=== PATIENT | female | born 1990 | race Caucasian/White ===

== ENCOUNTER 2020-02-14 07:07 | Inpatient (IN) | payer BC ==
[2020-02-14] MEDS ORDERED: Lactated Ringers 1,000 ML ONE (07:40)
[2020-02-14] MEDS ORDERED: Ondansetron 4 MG/2 ML SDV IVPUSH PRN (07:59)
[2020-02-14] MEDS ORDERED: Nalbuphine 10 MG/ML Syringe IVPUSH PRN (07:59)
[2020-02-14] MEDS ORDERED: Sodium Chloride 0.9% 10 ML Syringe FLUSH PRN (07:59)
[2020-02-14] MEDS ORDERED: Lactated Ringers 1,000 ML IV SCH (08:00)
[2020-02-14] MEDS ORDERED: Oxytocin/Lactated Ringers 10 UNIT/1,000 ML BAG IV SCH ×2 (08:00)
[2020-02-14] MEDS ORDERED: Oxytocin/Lactated Ringers 20 UNIT/1,000 ML BAG ONE (08:05)
[2020-02-14] MEDS ORDERED: Lidocaine 1.5% with EPINEPHrine 1:200,000 5 ML Amp ONE (10:00)
--- NOTE | 2020-02-14 10:25 | PCM.LDHP ---
L&D History of Present Illness - General Date of Service: 02/14/20 Admit Problem/Dx: Admission Diagnosis/Problem Admission Diagnosis/Problem 02/14/20 10:14 Lucy 29-year-old 3 para 2001 white female admitted on 02/14/2020 at 39- 6/7 weeks gestational age with an MAYUR of 02/15/2020 for induction of labor. Source of Information: Patient History Limitations: Reports: No Limitations - History of Present Illness Introduction:: Lucy 29-year-old 3 para 2001 white female admitted on 02/14/2020 at 39- 6/7 weeks gestational age with an MAYUR of 02/15/2020 for induction of labor.Last evaluation in clinic on 01/31/2020 her cervix was 3 cm dilated, 80% effaced, very soft, mid position at a -3 station. Plan was to assess the station of the presenting part and proceed with artificial rupture membranes induction Pitocin augmentation. If the head had not descended well against cervix would start with Pitocin and follow with AROM augmentation. Patient is understanding of the process and wishes to proceed. NREMT history: Radha is a 3 para 2001. MAYRU of 02/15/2020 was determined by an early ultrasound done at 7-1/7 weeks gestational age and supported by other ultrasounds during the . She had menarche at age 13. Cycles every 30 days. Not using any control at the time of conception. Somewhat uncertain about LMP. Her past obstetric history includes the followin. Male born 2011 at 41 weeks gestational age after 42 hours of labor. 7 lbs. 3 oz. Spinal for delivery. Child's name is Ross. 2. Female infant born 08/19/2014 at 40-5/7 weeks gestational age after 3 hours and 3 minutes of labor. 6 lbs. 3 oz. Had an epidural during this labor. Child's name is Nara. course: Patient was seen early in the course at 7-1/7 weeks gestational age. She had ultrasound that time by which the was dated. She was seen on a very regular basis throughout the course of . Fundal height growth was appropriate. Weight gain was from 123.2 pounds to 161 pounds for a 36.8 pound increase. It is been active. Vital signs of been stable. She had her flu shot on 07/22/2019 and her T dap immunization on 12/15/2019. Patient has positive group B strep. She is allergic to penicillin and the group B strep is resistant to clindamycin. Therefore she is a vancomycin candidate while in labor for prophylaxis. She has history of anxiety and depression. She has a history of MRSA infection but this was found to be clear on evaluation prenatally. Prequel noninvasive testing was completed and was negative for trisomy 18, 13 and 21. She is Rh- and did receive RhoGAM during the course of her on 11/19/2019. She is also had some mild thrombocytopenia. Last platelet count was acceptable. She is rubella equivocal and patient is candidate for an MMR prior to discharge from hospital. Allergies: 1. Penicillin which causes a rash 2. Animal dander-cats and Dogs. 3. Seasonal Allergies. Medications: 1. vitamins 1 by mouth daily 2. Ferrous sulfate 324 mg by mouth daily 3. Probiotic oral tablet delayed release 1 daily 4. Sertraline 50 mg by mouth daily for anxiety/depression 5. Prevacid by mouth daily when necessary for dyspepsia. Past medical history: 2 as above. 2. Anxiety/depressant-on sertraline 3. Abnormal Pap smear 2016 mild no follow-up indicated Past surgical history: 1. Tonsillectomy in 1994 2. Violet teeth extraction Family history: Mother of the baby's nephew had hydrocephalus. Patient brother with heart defect past with 2 months old. Patient's mother with recurrent losses. Mother however is alive and well otherwise with the exception of high blood pressure and miscarriages 2. Father is alive and well with high blood pressure and high cholesterol. 2 brothers 1 2 months due to heart condition, the other is okay. 2 sisters with both alive and well. Maternal grandmother is secondary blood vessel disease, stroke was a smoker. Maternal grandfather at age 99. Paternal grandmother alive at age 91. Paternal grandfather is seizures age 40-50. No known family history of cancer, bleeding or blood clotting disorders, anesthesia related issues or related concerns. Social history: Patient is . She is a teacher. She is a college graduate. She had her and family live in [place], [place]. is Tre. She does not use any significant most alcohol, drugs or tobacco. Review of systems: In general patient has no complaints. The baby has been active. Skin: Negative Lungs: No infectious symptoms or shortness of breath Cardiovascular: No chest pain or exercise intolerance Breasts: No lumps, changes in size, pain, dimpling, discharge or axillary or supraclavicular concerns. GI: Negative : changes. Musculoskeletal: Negative Neurological: Negative In general the patient is well-developed, well-nourished, pleasant female of stated age in no acute distress. On last evaluation in clinic in 01/31/2020 blood pressures 110/60, weight was 161 with a pregravid weight of 123.2. Height is 5 feet 4. Prepregnancy BMI was 20.3. heart rate then was 128 BPM. Skin is warm dry without lesions. HEENT, neck and back within normal limits. Lungs are clear with good breath sounds in all lung ocampo. Cardiovascular exam shows regular and rhythm without murmurs. Abdomen is gravid with last fundal height at 37 cm.. Genital per digital exam is as above.. Extremities and neurological exam are grossly within normal limits. - Related Data Allergies/Adverse Reactions: Allergies Allergy/AdvReac Type Severity Reaction Status Date / Time amoxicillin [Amoxicillin] Allergy Unknown Hives Verified 02/04/20 10:35 penicillin G Allergy Unknown Rash Verified 02/04/20 10:35 Home Medications: Home Meds Ferrous Sulfate 324 mg PO ASDIRECTED 02/04/20 [History] Lansoprazole [Prevacid] 15 mg PO ASDIRECTED 02/04/20 [History] Prenat 115/Iron Fum/Folic/Dss [ 19 Tablet] 1 each PO DAILY 02/04/20 [ History] Sertraline HCl [Zoloft] 50 mg PO DAILY 02/04/20 [History] Past Medical History - Past Health History Medical/Surgical History: Denies Medical/Surgical History NREMT History: Reports: Neurological History: Reports: Headaches, Chronic Psychiatric History: Reports: Anxiety, Depression - Past Surgical History HEENT Surgical History: Reports: Tonsillectomy Other HEENT Surgeries/Procedures: Violet teeth removed Social & Family History - Tobacco Use Smoking Status *Q: Never Smoker Second Hand Smoke Exposure: No - Caffeine Use Caffeine Use: Reports: None - Recreational Drug Use Recreational Drug Use: No H&P Review of Systems - Review of Systems: Review Of Systems: See Below L&D Exam - Exam Exam: See Below - Vital Signs Vital Signs: Last Vital Signs Temp 36.8 C 02/14/20 07:59 Pulse 83 02/14/20 07:59 Resp 18 02/14/20 07:59 BP 117/78 02/14/20 07:59 Pulse Ox 99 02/14/20 07:59 Weight: 73.482 kg - Patient Data Lab Results Last 24 hrs: Laboratory Results - last 24 hr 02/14/20 Range/Units 08:11 WBC 8.06 (3.98-10.04) K/mm3 RBC 3.76 L (3.98-5.22) M/mm3 Hgb 11.9 (11.2-15.7) gm/dl Hct 36.7 (34.1-44.9) % MCV 97.6 H (79.4-94.8) fl MCH 31.6 (25.6-32.2) pg MCHC 32.4 (32.2-35.5) g/dl RDW Std Deviation 48.8 H (36.4-46.3) fL Plt Count 110 L (182-369) K/mm3 MPV 11.5 (9.4-12.3) fl Neut % (Auto) 75.9 H (34.0-71.1) % Lymph % (Auto) 14.6 L (19.3-51.7) % Parmer % (Auto) 7.4 (4.7-12.5) % Eos % (Auto) 0.5 L (0.7-5.8) Baso % (Auto) 0.1 (0.1-1.2) % Neut # (Auto) 6.11 (1.56-6.13) K/mm3 Lymph # (Auto) 1.18 (1.18-3.74) K/mm3 Parmer # (Auto) 0.60 H (0.24-0.36) K/mm3 Eos # (Auto) 0.04 (0.04-0.36) K/mm3 Baso # (Auto) 0.01 (0.01-0.08) K/mm3 Manual Slide Review Abnormal smear Result Diagrams: 02/14/20 08:11 Problem List Initiated/Reviewed/Updated: Yes Orders Last 24hrs: Active Orders 24 hr Category Date Time Status Activity as Tolerated [RC] PFP Care 02/14/20 07:59 Active Communication Order [RC] ASDIRECTED Care 02/14/20 07:59 Active Heart Tones [RC] ASDIRECTED Care 02/14/20 07:59 Active Notify Provider [RC] PFP Care 02/14/20 07:59 Active Notify Provider [RC] PRN Care 02/14/20 07:59 Active Peripheral IV Care [RC] . DIRECTED Care 02/14/20 07:59 Active Vital Signs [RC] PER UNIT ROUTINE Care 02/14/20 07:59 Active Regular Diet [DIET] Diet 02/14/20 Breakfast Active RAPID PLASMA REAGIN,RPR [CHEM] Routine Lab 02/14/20 08:11 Received Lactated Ringers [Ringers, Lactated] 1,000 ml Med 02/14/20 08:00 Active IV ASDIRECTED Nalbuphine [Nubain] Med 02/14/20 07:59 Active 10 mg IVPUSH Q2H PRN Ondansetron [Zofran] Med 02/14/20 07:59 Active 4 mg IVPUSH Q4H PRN Oxytocin/Lactated Ringers [Pitocin in LR 10 Units/1,000 Med 02/14/20 08:00 Active ML] 10 unit in 1,000 ml IV .CONTINUOUS Oxytocin/Lactated Ringers [Pitocin in LR 10 Units/1,000 Med 02/14/20 08:00 Active ML] 10 unit in 1,000 ml IV TITRATE Sodium Chloride 0.9% [Saline Flush] Med 02/14/20 07:59 Active 10 ml FLUSH ASDIRECTED PRN Vancomycin [Vancocin] 1 gm Med 02/14/20 08:00 Active Sodium Chloride 0.9% [Normal Saline (AdvBag)] 250 ml IV Q12H Electronic Heart Tones Ext w TOCO [WOMSER] Oth 02/14/20 07:59 Ordered Routine Electronic Heart Tones Internal [WOMSER] Per Unit Oth 02/14/20 07:59 Ordered Routine Peripheral IV Insertion Adult [OM.PC] Routine Oth 02/14/20 07:59 Ordered Resuscitation Status Routine Resus Stat 02/14/20 07:59 Ordered Medication Orders Lactated Ringer's (Ringers, Lactated) 1,000 mls @ 100 mls/hr IV ASDIRECTED SOBEIDA Last Admin: 02/14/20 08:11 Dose: 100 mls/hr Oxytocin/Lactated Ringer's (Pitocin In Lr 10 Units/1,000 Ml) 10 unit in 1,000 mls @ 12 mls/hr IV TITRATE SOBEIDA; Protocol Last Titration: 02/14/20 10:10 Dose: 6 munits/min, 36 mls/hr Titration: 02/14/20 09:15 Dose: 4 munits/min, 24 mls/hr Admin: 02/14/20 08:13 Dose: 2 munits/min, 12 mls/hr Oxytocin/Lactated Ringer's (Pitocin In Lr 10 Units/1,000 Ml) 10 unit in 1,000 mls @ 500 mls/hr IV .CONTINUOUS SOBEIDA Vancomycin HCl 1 gm/ Sodium (Chloride) 250 mls @ 167 mls/hr IV Q12H [facility] Last Admin: 02/14/20 08:25 Dose: 167 mls/hr Nalbuphine HCl (Nubain) 10 mg IVPUSH Q2H PRN PRN Reason: Pain Ondansetron HCl (Zofran) 4 mg IVPUSH Q4H PRN PRN Reason: Nausea/Vomiting Sodium Chloride (Saline Flush) 10 ml FLUSH ASDIRECTED PRN PRN Reason: Keep Vein Open Assessment/Plan Comment:: 1. 39-6/7 week intrauterine admitted for induction of labor 2. Group B strep positive with penicillin allergy and group B strep which is resistant to clindamycin. Patient is candidate for vancomycin prophylaxis per protocol. 3. Desires epidural in labor 4. Plans to breast-feed 5. Has received her flu immunization and her T dap. 6. Patient is rubella equivocal. She is candidate for MMR prior to discharge from hospital. Plan: 1. Induction of labor as above. 2. Epidural when necessary 3. Vancomycin per protocol for group B strep prophylaxis 4. Anticipate normal spontaneous vaginal delivery 5. Recommend MMR prior to discharge from hospital.
[2020-02-14] MEDS ORDERED: ePHEDrine 50 MG/ML SDV IVPUSH PRN (12:55)
[2020-02-14] MEDS ORDERED: Bupivacaine/fentaNYL/NS 100 ML Bag EPIDUR PRN (12:55)
[2020-02-14] MEDS ORDERED: diphenhydrAMINE 50 MG/ML SDV IVPUSH PRN (12:55)
[2020-02-14] MEDS ORDERED: fentaNYL 100 MCG/2 ML SDV EPIDUR PRN (12:55)
[2020-02-14] MEDS ORDERED: fentaNYL 100 MCG/2 ML SDV ONE (12:59)
--- NOTE | 2020-02-14 13:03 | PCM.PREANE ---
Preanesthetic Assessment - Anesthesia/Transfusion/Family Hx Anesthesia History: Prior Anesthesia Without Reaction Transfusion History: No Prior Transfusion(s) - Review of Systems General: No Symptoms Pulmonary: No Symptoms Cardiovascular: No Symptoms Gastrointestinal: No Symptoms Neurological: Headache (baseline migraine/ chronic) Other: Reports: None - Physical Assessment Vital Signs: Last Vital Signs Temp 98.3 F 02/14/20 07:59 Pulse 83 02/14/20 07:59 Resp 18 02/14/20 07:59 BP 117/78 02/14/20 07:59 Pulse Ox 99 02/14/20 07:59 Height: 1.63 m Weight: 73.482 kg ASA Class: 2 Mental Status: Alert & Oriented x3 Airway Class: Mallampati = 2 Dentition: Reports: Normal Dentition Thyro-Mental Finger Breadths: 3 Mouth Opening Finger Breadths: 3 ROM/Head Extension: Full Lungs: Clear to Auscultation, Normal Respiratory Effort Cardiovascular: Regular Rate, Regular Rhythm - Lab Values: Laboratory Last Values WBC 8.06 K/mm3 (3.98-10.04) 02/14/20 08:11 RBC 3.76 M/mm3 (3.98-5.22) L 02/14/20 08:11 Hgb 11.9 gm/dl (11.2-15.7) 02/14/20 08:11 Hct 36.7 % (34.1-44.9) 02/14/20 08:11 MCV 97.6 fl (79.4-94.8) H 02/14/20 08:11 MCH 31.6 pg (25.6-32.2) 02/14/20 08:11 MCHC 32.4 g/dl (32.2-35.5) 02/14/20 08:11 RDW Std Deviation 48.8 fL (36.4-46.3) H 02/14/20 08:11 Plt Count 110 K/mm3 (182-369) L 02/14/20 08:11 MPV 11.5 fl (9.4-12.3) 02/14/20 08:11 Neut % (Auto) 75.9 % (34.0-71.1) H 02/14/20 08:11 Lymph % (Auto) 14.6 % (19.3-51.7) L 02/14/20 08:11 Loving % (Auto) 7.4 % (4.7-12.5) 02/14/20 08:11 Eos % (Auto) 0.5 (0.7-5.8) L 02/14/20 08:11 Baso % (Auto) 0.1 % (0.1-1.2) 02/14/20 08:11 Neut # (Auto) 6.11 K/mm3 (1.56-6.13) 02/14/20 08:11 Lymph # (Auto) 1.18 K/mm3 (1.18-3.74) 02/14/20 08:11 Loving # (Auto) 0.60 K/mm3 (0.24-0.36) H 02/14/20 08:11 Eos # (Auto) 0.04 K/mm3 (0.04-0.36) 02/14/20 08:11 Baso # (Auto) 0.01 K/mm3 (0.01-0.08) 02/14/20 08:11 Manual Slide Review Abnormal smear 02/14/20 08:11 - Allergies Allergies/Adverse Reactions: Allergies Allergy/AdvReac Type Severity Reaction Status Date / Time amoxicillin [Amoxicillin] Allergy Unknown Hives Verified 02/04/20 10:35 penicillin G Allergy Unknown Rash Verified 02/04/20 10:35 - Acknowledgements Anesthesia Type Planned: Epidural Pt an Appropriate Candidate for the Planned Anesthesia: Yes Alternatives and Risks of Anesthesia Discussed w Pt/Guardian: Yes Pt/Guardian Understands and Agrees with Anesthesia Plan: Yes PreAnesthesia Questionnaire - Past Health History Medical/Surgical History: Denies Medical/Surgical History [employer] History: Reports: Neurological History: Reports: Headaches, Chronic Psychiatric History: Reports: Anxiety, Depression - Past Surgical History HEENT Surgical History: Reports: Tonsillectomy Other HEENT Surgeries/Procedures: [place] teeth removed - SUBSTANCE USE Smoking Status *Q: Never Smoker Tobacco Use Within Last Twelve Months: No Second Hand Smoke Exposure: No Recreational Drug Use History: No - HOME MEDS Home Medications: Home Meds Ferrous Sulfate 324 mg PO ASDIRECTED 02/04/20 [History] Lansoprazole [Prevacid] 15 mg PO ASDIRECTED 02/04/20 [History] Prenat 115/Iron Fum/Folic/Dss [ 19 Tablet] 1 each PO DAILY 02/04/20 [ History] Sertraline HCl [Zoloft] 50 mg PO DAILY 02/04/20 [History] - CURRENT (IN HOUSE) MEDS Current Meds: Current Medications Diphenhydramine HCl (Benadryl) 25 mg IVPUSH Q6H PRN PRN Reason: pruritis Ephedrine Sulfate (Ephedrine Sulfate) 5 mg IVPUSH ASDIRECTED PRN PRN Reason: Hypotension Fentanyl (Sublimaze) 100 mcg EPIDUR Q3H PRN PRN Reason: Pain Fentanyl/Bupivacaine HCl (Fentanyl/Bupivacaine/Ns 2 Mcg-0.125% 100 Ml) 100 ml EPIDUR ASDIRECTED PRN PRN Reason: Pain Lactated Ringer's (Ringers, Lactated) 1,000 mls @ 100 mls/hr IV ASDIRECTED SOBEIDA Last Admin: 02/14/20 08:11 Dose: 100 mls/hr Oxytocin/Lactated Ringer's (Pitocin In Lr 10 Units/1,000 Ml) 10 unit in 1,000 mls @ 12 mls/hr IV TITRATE SOBEIDA; Protocol Last Titration: 02/14/20 11:46 Dose: 10 munits/min, 60 mls/hr Oxytocin/Lactated Ringer's (Pitocin In Lr 10 Units/1,000 Ml) 10 unit in 1,000 mls @ 500 mls/hr IV .CONTINUOUS SOBEIDA Vancomycin HCl 1 gm/ Sodium (Chloride) 250 mls @ 167 mls/hr IV Q12H SOBEIDA Last Admin: 02/14/20 08:25 Dose: 167 mls/hr Nalbuphine HCl (Nubain) 10 mg IVPUSH Q2H PRN PRN Reason: Pain Ondansetron HCl (Zofran) 4 mg IVPUSH Q4H PRN PRN Reason: Nausea/Vomiting Sodium Chloride (Saline Flush) 10 ml FLUSH ASDIRECTED PRN PRN Reason: Keep Vein Open Discontinued Medications Lactated Ringer's (Ringers, Lactated) Confirm Administered Dose 1,000 mls @ as directed .ROUTE .STK-MED ONE Stop: 02/14/20 07:41 Last Admin: 02/14/20 10:43 Dose: Not Given Oxytocin/Lactated Ringer's (Pitocin In Lr 20 Units/1,000 Ml) Confirm Administered Dose 20 unit in 1,000 mls @ as directed .ROUTE .STK-MED ONE Stop: 02/14/20 08:06
[2020-02-14] MEDS ORDERED: Acetaminophen 325 MG Tab PO PRN (17:41)
[2020-02-14] MEDS ORDERED: Docusate Sodium 100 MG Cap PO PRN (17:41)
--- NOTE | 2020-02-14 17:55 | PCM.SN.2 ---
- Free Text/Narrative Note: Lucy 29-year-old 3 para 2002 white female admitted on 02/14/2020 at 39- 6/7 weeks gestational age with an MAYUR of 02/15/2020 for induction of labor. Upon initial evaluation in labor and delivery the baby's head was found to be at a - 3 station and was not well engaged with cervix. She was initially given Pitocin per IV to initiate contractions. After 2-3 hours of Pitocin the baby's head was found to well against cervix and artificial rupture membranes with resultant clear amniotic fluid was then undertaken. The labor intensity increased significantly. Radha had an epidural for labor analgesia. She progressed rapidly and at 1436 hrs. on 02/14/2020 Radha delivered a viable, araujo, female infant named Diamond Ortega in a direct occiput anterior position. The baby weighed 6 pounds 12.3 ounces (3070 g), had Apgars of 8 and 9 and the length of 19.0 inches. Baby was placed on mom's abdomen. Nose and mouth were bulb suctioned. Pitocin was increased to 500 mL an hour in order to facilitate an increase in uterine tone and decreased likelihood of bleeding. The umbilical cord was long pulsate for 2-3 minutes and then was clamped 2 and cut by the baby's father Tre. Blood was obtained. The placenta then delivered in a De presentation, appeared intact and complete and was discarded per patient desire. She had a first-degree laceration which was repaired with a single figure-of- eight suture of 3-0 Monocryl using labor epidural analgesia as perineal anesthesia. Patient tolerated this well. Estimated blood loss was 200 mL. Patient plans to breast-feed. Condition: Good.
[2020-02-14] MEDS: Benzocaine/Menthol 20%-0.5% Spray 56 GM Canister TOP PRN (20:20)
[2020-02-14] MEDS: Witch Hazel Medicated Pads 40/Jar TOP PRN (20:20)
[2020-02-14] MEDS: Ibuprofen 600 MG Tab PO PRN (20:28)
--- NOTE | 2020-02-15 08:59 | PCM48HPAN ---
Post Anesthesia Note - EVALUATION WITHIN 48HRS OF ANESTHETIC Vital Signs in Normal Range: Yes Patient Participated in Evaluation: Yes Respiratory Function Stable: Yes Airway Patent: Yes Cardiovascular Function Stable: Yes Hydration Status Stable: Yes Pain Control Satisfactory: Yes Nausea and Vomiting Control Satisfactory: Yes Mental Status Recovered: Yes Vital Signs: Last Vital Signs Temp 36.7 C 02/15/20 03:03 Pulse 66 02/15/20 03:03 Resp 14 02/15/20 03:03 BP 119/97 H 02/15/20 03:03 Pulse Ox 97 02/15/20 03:03
[2020-02-15] MEDS ORDERED: Sertraline 50 MG Tab PO SCH (09:00)
[2020-02-15] MEDS ORDERED: Prenatal Multivitamin with Calcium/Folic Acid/Iron Tab PO SCH (09:00)
[2020-02-15] MEDS: Ibuprofen 600 MG Tab PO PRN (10:17)
--- NOTE | 2020-02-15 10:36 | PCM.DCSUM1 ---
Discharge Summary - Hospital Course Free Text/Narrative:: Lucy 29-year-old 3 para 2002 white female admitted on 02/14/2020 at 39- 6/7 weeks gestational age with an MAYUR of 02/15/2020 for induction of labor. Upon initial evaluation in labor and delivery the baby's head was found to be at a - 3 station and was not well engaged with cervix. She was initially given Pitocin per IV to initiate contractions. After 2-3 hours of Pitocin the baby's head was found to well against cervix and artificial rupture membranes with resultant clear amniotic fluid was then undertaken. The labor intensity increased significantly. Radha had an epidural for labor analgesia. She progressed rapidly and at 1436 hrs. on 02/14/2020 Radha delivered a viable, araujo, female infant named Diamond Ortega in a direct occiput anterior position. The baby weighed 6 pounds 12.3 ounces (3070 g), had Apgars of 8 and 9 and the length of 19.0 inches. Baby was placed on mom's abdomen. Nose and mouth were bulb suctioned. Pitocin was increased to 500 mL an hour in order to facilitate an increase in uterine tone and decreased likelihood of bleeding. The umbilical cord was long pulsate for 2-3 minutes and then was clamped 2 and cut by the baby's father Tre. Blood was obtained. The placenta then delivered in a De presentation, appeared intact and complete and was discarded per patient desire. She had a first-degree laceration which was repaired with a single figure-of- eight suture of 3-0 Monocryl using labor epidural analgesia as perineal anesthesia. Patient tolerated this well. Estimated blood loss was 200 mL. Patient plans to breast-feed. patient is done well. She is ambulatory and well, nursing without problems, voiding without concerns and has minimal lochia. She is desiring discharge home. Condition: Good. - Discharge Data Discharge Date: 02/15/20 Discharge Disposition: Home, Self-Care 01 Condition: Good - Referral to Home Health Primary Care Physician: Otoniel Boyd MD - Patient Instructions Diet: Regular Diet as Tolerated (Nursing diet with increase calories and calcium is recommended) Activity: As Tolerated (No intercourse or tampons until bleeding resolves) Driving: May Drive Today Showering/Bathing: May Shower (May take a bath) Notify Provider of: Fever, Increased Pain, Swelling and Redness, Nausea and/or Vomiting - Discharge Plan Home Medications: Home Meds Ferrous Sulfate 324 mg PO ASDIRECTED 02/04/20 [History] Lansoprazole [Prevacid] 15 mg PO ASDIRECTED 02/04/20 [History] Prenat 115/Iron Fum/Folic/Dss [ 19 Tablet] 1 each PO DAILY 02/04/20 [ History] Sertraline HCl [Zoloft] 50 mg PO DAILY 02/04/20 [History] Acetaminophen [Tylenol] 650 mg PO Q4H PRN tablet 02/15/20 [Rx] Ibuprofen [Motrin] 600 mg PO Q4H PRN tablet 02/15/20 [Rx] Referrals: Otoniel Boyd MD [Primary Care Provider] - (Patient is to call for a telehealth appointment with Dr. Boyd for 2 weeks following delivery.) - Discharge Summary/Plan Comment DC Time >30 min.: No Discharge Summary/Plan Comment: Discharge instructions: 1. Discharge home 2. Diet, activity and follow-up discussed with patient. Recommend nursing diet with increased calories and calcium. 3. Precautions given concern increased pain, bleeding, temperature, signs/ symptoms of DVT/PE. 4. Medications per home medication was printed, discussed with and given to the patient. 5. The patient is to call for a telehealth appointment with Dr. Boyd for 2 weeks following delivery. Diagnosis: Term -delivered Condition: Good - Patient Data Vitals - Most Recent: Last Vital Signs Temp 36.7 C 02/15/20 03:03 Pulse 66 02/15/20 03:03 Resp 14 02/15/20 03:03 BP 119/97 H 02/15/20 03:03 Pulse Ox 97 02/15/20 03:03 Weight - Most Recent: 73.482 kg I&O - Last 24 hours: Intake & Output 02/14/20 02/15/20 02/15/20 22:59 06:59 14:59 Intake Total 3520 Balance 3520 Lab Results - Last 24 hrs: Laboratory Results - last 24 hr 02/14/20 02/14/20 Range/Units 08:11 19:05 RPR Non-reactive (NONREACTIVE) Blood Type A NEGATIVE Gel Antibody Screen Negative Screen 0 ros/5 flds - neg RhIG Candidate? Yes Rhogam Indicated Yes, baby rh pos H Med Orders - Current: Current Medications Acetaminophen (Tylenol) 650 mg PO Q4H PRN PRN Reason: mild pain or fever Last Admin: 02/15/20 00:44 Dose: 650 mg Benzocaine/Menthol (Dermoplast Pain Relief [place]) 0 gm TOP ASDIRECTED PRN PRN Reason: Perineal Comfort Measure Last Admin: 02/14/20 20:20 Dose: 1 canister Docusate Sodium (Colace) 100 mg PO BID PRN PRN Reason: Constipation Last Admin: 02/15/20 10:23 Dose: 100 mg Ibuprofen (Motrin) 600 mg PO Q4H PRN PRN Reason: Mild pain or fever Last Admin: 02/15/20 10:17 Dose: 600 mg Prenat Multivit/Charles Mix/Iron/Folic Ac ( Plus Iron) 1 each PO DAILY [facility] Last Admin: 02/15/20 10:17 Dose: 1 each Sertraline HCl (Zoloft) 50 mg PO DAILY [facility] Last Admin: 02/15/20 10:18 Dose: Not Given Panda Paez (Janakcks) 1 pad TOP ASDIRECTED PRN PRN Reason: Perineal Comfort Measure Last Admin: 02/14/20 20:20 Dose: 1 canister Discontinued Medications Diphenhydramine HCl (Benadryl) 25 mg IVPUSH Q6H PRN PRN Reason: pruritis Ephedrine Sulfate (Ephedrine Sulfate) 5 mg IVPUSH ASDIRECTED PRN PRN Reason: Hypotension Fentanyl (Sublimaze) 100 mcg EPIDUR Q3H PRN PRN Reason: Pain Last Admin: 02/14/20 13:12 Dose: 100 mcg Fentanyl (Sublimaze) Confirm Administered Dose 100 mcg .ROUTE .STK-MED ONE Stop: 02/14/20 13:00 Last Admin: 02/14/20 16:25 Dose: Not Given Fentanyl/Bupivacaine HCl (Fentanyl/Bupivacaine/Ns 2 Mcg-0.125% 100 Ml) 100 ml EPIDUR ASDIRECTED PRN PRN Reason: Pain Lactated Ringer's (Ringers, Lactated) Confirm Administered Dose 1,000 mls @ as directed .ROUTE .STK-MED ONE Stop: 02/14/20 07:41 Last Admin: 02/14/20 10:43 Dose: Not Given Lactated Ringer's (Ringers, Lactated) 1,000 mls @ 100 mls/hr IV ASDIRECTED SOBEIDA Last Admin: 02/14/20 08:11 Dose: 100 mls/hr Oxytocin/Lactated Ringer's (Pitocin In Lr 10 Units/1,000 Ml) 10 unit in 1,000 mls @ 12 mls/hr IV TITRATE SOBEIDA; Protocol Last Titration: 02/14/20 11:46 Dose: 10 munits/min, 60 mls/hr Oxytocin/Lactated Ringer's (Pitocin In Lr 10 Units/1,000 Ml) 10 unit in 1,000 mls @ 500 mls/hr IV .CONTINUOUS SOBEIDA Vancomycin HCl 1 gm/ Sodium (Chloride) 250 mls @ 167 mls/hr IV Q12H SOBEIDA Last Admin: 02/14/20 08:25 Dose: 167 mls/hr Oxytocin/Lactated Ringer's (Pitocin In Lr 20 Units/1,000 Ml) Confirm Administered Dose 20 unit in 1,000 mls @ as directed .ROUTE .STK-MED ONE Stop: 02/14/20 08:06 Last Admin: 02/14/20 16:25 Dose: Not Given Lidocaine/Epinephrine (Xylocaine-Mpf 1.5% W/Epinephrine 1:200,000) 5 ml .ROUTE .STK-MED ONE Stop: 02/14/20 10:01 Nalbuphine HCl (Nubain) 10 mg IVPUSH Q2H PRN PRN Reason: Pain Ondansetron HCl (Zofran) 4 mg IVPUSH Q4H PRN PRN Reason: Nausea/Vomiting Sodium Chloride (Saline Flush) 10 ml FLUSH ASDIRECTED PRN PRN Reason: Keep Vein Open
[2020-02-15 11:18] VITALS: BP 104/72; PULSE 95
[2020-02-15] MEDS: Benzocaine/Menthol 20%-0.5% Spray 56 GM Canister TOP PRN (14:36)
[2020-02-15] MEDS: Witch Hazel Medicated Pads 40/Jar TOP PRN (14:36)
== END 2020-02-15 15:35 | disposition home or self-care (01) | DRG 560 ==
LOC: JD.OB 07:07 → OBSVTOIN 14:36 → JD.OB 15:01
PROVIDERS: ADMIT Obstetrics & Gynecology; ATTEND Obstetrics & Gynecology
PROC: 10E0XZZ Delivery of Products of Conception, External Approach (ICD-10-PCS; principal; 2020-02-14)
PROC: 0HQ9XZZ Repair Perineum Skin, External Approach (ICD-10-PCS; 2020-02-14)
PROC: 3E0R3BZ Introduction of Anesthetic Agent into Spinal Canal, Percutaneous Approach (ICD-10-PCS; 2020-02-14)
DX: O99.824 Streptococcus B carrier state complicating childbirth (principal); O70.0 First degree perineal laceration during delivery; O99.344 Other mental disorders complicating childbirth; F32.9 Major depressive disorder, single episode, unspecified; F41.9 Anxiety disorder, unspecified; Z3A.39 39 weeks gestation of pregnancy; Z37.0 Single live birth; Z88.0 Allergy status to penicillin
CPT/HCPCS: 36415; 51702; 59025; 59409; 85025; 85461; 86592; 86850; 86900; 86901; A9270-GY; J2590; J2790; J3010; J3370; J7050; J7120

== ENCOUNTER 2022-05-30 16:54 | Emergency (ER) | payer BC ==
[2022-05-30 20:19] VITALS: BP 120/74; PULSE 70
[2022-05-30] MEDS ORDERED: Sodium Chloride 0.9% 10 ML Syringe FLUSH PRN (20:20)
[2022-05-30] MEDS ORDERED: Sodium Chloride 0.9% 1,000 ML IV STA (20:56)
== END 2022-05-30 22:30 | disposition home or self-care (01) ==
LOC: JD.ED 16:54
DX: O99.891 Other specified diseases and conditions complicating pregnancy (principal); R10.2 Pelvic and perineal pain; Z88.0 Allergy status to penicillin; Z3A.15 15 weeks gestation of pregnancy
CPT/HCPCS: 36415; 80053; 81001; 85025; 96360; 99284; J3490; J7030; 99283

== ENCOUNTER 2022-11-12 03:02 | Inpatient (IN) | payer BC ==
[2022-11-12] MEDS ORDERED: Acetaminophen 325 MG Tab PO PRN ×2 (03:05→11:59)
[2022-11-12] MEDS ORDERED: Calcium Carbonate 500 MG Tab.Chew PO PRN (03:05)
[2022-11-12] MEDS ORDERED: Lidocaine 1% 50 ML MDV INJECT PRN (03:05)
[2022-11-12] MEDS ORDERED: ceFAZolin 2 GM in Sodium Chloride 0.9% 50 ML IV ONE (03:05)
[2022-11-12] MEDS ORDERED: Ondansetron 4 MG/2 ML SDV IVPUSH PRN (03:05)
[2022-11-12] MEDS ORDERED: Nalbuphine 10 MG/0.5 ML Syringe IVPUSH PRN (03:05)
[2022-11-12] MEDS ORDERED: Oxytocin/Lactated Ringers 10 UNIT/1,000 ML BAG IV SCH ×2 (03:15)
[2022-11-12] MEDS: Lactated Ringers 1,000 ML IV SCH ×2 (03:57→10:20)
[2022-11-12] MEDS ORDERED: ceFAZolin 1 GM in Sodium Chloride 0.9% 100 ML IV SCH (09:00)
[2022-11-12] MEDS ORDERED: fentaNYL 100 MCG/2 ML SDV EPIDUR PRN (10:44)
[2022-11-12] MEDS ORDERED: ePHEDrine 50 MG/ML SDV IVPUSH PRN (10:44)
[2022-11-12] MEDS ORDERED: diphenhydrAMINE 50 MG/ML SDV IVPUSH PRN (10:44)
[2022-11-12] MEDS ORDERED: Bupivacaine/fentaNYL/NS 100 ML Bag EPIDUR PRN (10:44)
[2022-11-12] MEDS ORDERED: Benzocaine/Menthol 20%-0.5% Spray 78 GM Cannister TOP PRN (11:59)
[2022-11-12] MEDS ORDERED: Ibuprofen 600 MG Tab PO PRN (11:59)
[2022-11-12] MEDS ORDERED: Docusate Sodium 100 MG Cap PO PRN (11:59)
[2022-11-12] MEDS ORDERED: Witch Hazel Medicated Pads 40/Jar TOP PRN (11:59)
[2022-11-12] MEDS ORDERED: Ropivacaine 0.2% PF 2 MG/ML 20 ML SDV ONE (12:00)
[2022-11-13 07:54] VITALS: BP 104/81; PULSE 73
[2022-11-13] MEDS ORDERED: Sertraline 50 MG Tab PO SCH (09:00)
[2022-11-13] MEDS ORDERED: Measles, Mumps & Rubella Vaccine 0.5 ML SDV SUBCUT ONE (12:39)
== END 2022-11-13 14:13 | disposition home or self-care (01) | DRG 560 ==
LOC: JD.OB 03:02 → OBSVTOIN 11:41 → JD.OB 11:42
PROVIDERS: ADMIT Obstetrics & Gynecology; ATTEND Obstetrics & Gynecology
PROC: 10E0XZZ Delivery of Products of Conception, External Approach (ICD-10-PCS; principal; 2022-11-12)
PROC: 10907ZC Drainage of Amniotic Fluid, Therapeutic from Products of Conception, Via Natural or Artificial Opening (ICD-10-PCS; 2022-11-12)
PROC: 3E033VJ Introduction of Other Hormone into Peripheral Vein, Percutaneous Approach (ICD-10-PCS; 2022-11-12)
PROC: 0HQ9XZZ Repair Perineum Skin, External Approach (ICD-10-PCS; 2022-11-12)
PROC: 3E0134Z Introduction of Serum, Toxoid and Vaccine into Subcutaneous Tissue, Percutaneous Approach (ICD-10-PCS; 2022-11-13)
DX: O99.344 Other mental disorders complicating childbirth (principal); F41.9 Anxiety disorder, unspecified; F32.A Depression, unspecified; Z37.0 Single live birth; O99.62 Diseases of the digestive system complicating childbirth; K21.9 Gastro-esophageal reflux disease without esophagitis; O99.02 Anemia complicating childbirth; D64.9 Anemia, unspecified; Z23 Encounter for immunization; O99.12 Other diseases of the blood and blood-forming organs and certain disorders involving the immune mechanism complicating childbirth; O99.354 Diseases of the nervous system complicating childbirth; G43.909 Migraine, unspecified, not intractable, without status migrainosus; D69.6 Thrombocytopenia, unspecified; Z3A.39 39 weeks gestation of pregnancy; Z88.0 Allergy status to penicillin; Z86.16 Personal history of COVID-19
CPT/HCPCS: 36415; 59025; 59409; 85025; 85461; 86592; 86850; 86870; 86900; 86901; 90471; 90707; J0690; J2590; J2790; J2795; J7120

== ENCOUNTER 2023-07-29 11:36 | Emergency (ER) | payer BC ==
[2023-07-29 12:34] LABS: BASOPHILS PERCENT AUTO 0.5 % (0.0-1.0); EOSINOPHILS ABSOLUTE AUTO 0.1 K/mm3 (0.0-0.4); EOSINOPHILS PERCENT AUTO 1.5 % (0.0-6.0); HEMATOCRIT 41.3 % (37.0-47.0); HEMOGLOBIN 13.7 gm/dl (12.0-16.0); IMMATURE GRAN ABSOLUTE AUTO 0.03 K/mm3 (0.00-0.05); IMMATURE GRAN PERCENT AUTO 0.5 % (0.0-0.4); LYMPHOCYTES ABSOLUTE AUTO 1.6 K/mm3 (1.0-4.8); LYMPHOCYTES PERCENT AUTO 26.7 % (24.0-44.0); MEAN CORPUSCULAR HEMOGLOBIN 31.5 pg (28.0-32.0); MEAN CORPUSCULAR HGB CONC 33.2 g/dl (32.0-36.0); MEAN CORPUSCULAR VOLUME 94.9 fl (83.0-99.0); MEAN PLATELET VOLUME 11.3 fl (9.4-12.3); MONOCYTES ABSOLUTE AUTO 0.4 K/mm3 (0.0-0.8); MONOCYTES PERCENT AUTO 7.2 % (0.0-8.0); NEUTROPHILS ABSOLUTE AUTO 3.8 K/mm3 (1.8-7.7); NEUTROPHILS PERCENT AUTO 63.6 % (41.0-71.0); PLATELET COUNT,PLT 208 K/mm3 (150-400); RED BLOOD CELL COUNT 4.35 M/mm3 (4.10-5.30); WHITE BLOOD CELL COUNT,WBC 5.96 K/mm3 (3.9-11.3)
[2023-07-29 12:48] LABS: ALANINE AMINOTRANSFERASE,ALT 18 U/L (14-59); ALBUMIN 4.2 g/dl (3.4-5.0); ALKALINE PHOSPHATASE 86 U/L (46-116); ANION GAP 15.1 (5-15); ASPARTATE AMNIOTRANSFERASE,AST 14 U/L (15-37); BILIRUBIN TOTAL 0.3 mg/dL (0.2-1.0); BLOOD UREA NITROGEN,BUN 14 mg/dL (7-18); BUN/CREATININE RATIO 15.6 (14-18); C-REACTIVE PROTEIN <0.2 mg/dL (<1.0); CALCIUM 9.3 mg/dL (8.5-10.1); CARBON DIOXIDE,CO2 24 mEq/L (21-32); CHLORIDE,CL 102 mEq/L (98-107); CREATININE 0.9 mg/dL (0.55-1.02); EST CRCL DRUG DOSING (CG) 77.49 mL/min; ESTIMATED GFR 87 mL/min (>60); GLUCOSE RANDOM 83 mg/dL (70-99); MAGNESIUM 1.9 mg/dL (1.8-2.4); POTASSIUM,K 4.1 mEq/L (3.5-5.1); PROTEIN TOTAL,TP 8.6 g/dl (6.4-8.2); SODIUM,NA 137 mEq/L (136-145); TSH 1.423 uIU/mL (0.358-3.74)
[2023-07-29 18:49] VITALS: BP 109/82; PULSE 72
== END 2023-07-29 14:34 | disposition home or self-care (01) ==
LOC: JD.ED 11:36
DX: R20.2 Paresthesia of skin (principal); K21.9 Gastro-esophageal reflux disease without esophagitis; Z86.16 Personal history of COVID-19; Z79.899 Other long term (current) drug therapy; Z88.0 Allergy status to penicillin; Z88.1 Allergy status to other antibiotic agents
CPT/HCPCS: 36415; 70450; 70450-26; 80053; 83735; 84443; 85025; 86140; 99284

== ENCOUNTER 2023-07-30 10:48 | Emergency (ER) | payer BC ==
[2023-07-30 18:06] VITALS: BP 126/77; PULSE 70
== END 2023-07-30 14:55 | disposition home or self-care (01) ==
LOC: JD.ED 10:48
DX: R20.2 Paresthesia of skin (principal); R20.0 Anesthesia of skin; R29.898 Other symptoms and signs involving the musculoskeletal system; Z86.16 Personal history of COVID-19; Z88.0 Allergy status to penicillin; Z79.899 Other long term (current) drug therapy
CPT/HCPCS: 70551; 70551-26; 72141; 72141-26; 99283; 99285